=== PATIENT | male | born 1965 | race Two or more races ===

== ENCOUNTER 2024-11-06 08:48 | Inpatient (IN) | payer OTHER ==
[~2024-11-06] VITALS: Ht 180.3 cm; Wt 129.0 kg
[2024-11-06] MEDS: ONDANSETRON HCL 4 MG/2 ML VIAL IV ONE (09:00)
[2024-11-06] MEDS: ACTIVATED CHARCOAL 50 GM/240 ML SOL PO ONE (09:00)
--- NOTE | 2024-11-06 09:06 | ED.PDOC ---
Psychiatric HPI Comments This is a 59 year old male CHARLENE presenting to the ED with chief complaint of SI and drug overdose. Patient reports that he has been dealing with marital problems at home recently and today he had enough, taking 20-25 tablets of 25mg Methocarbamol at 0750 that had been previously prescribed for back spasms. Patient relays that he felt like committing suicide, but denies SI at this time. Patient states that he is currently sleepy at this time. Patient denies any HI, VH, AH, chest pain, SOB, abdominal pain, dizziness, or headache. Chief Complaint: Overdose Time Seen by MD: 09:02 Reviewed Notes: Nurses Notes, Medications, Allergies Information Source: Patient Mode of Arrival: Ambulatory Severity: Able to Care for Self, Able to Control Self Severity of Pain: None Severity of Mental Status: Moderate Severity of Symptoms: Moderate Timing: Hours Duration: Since onset Prehospital treatment: None Presents with: Depression, Suicidal Ideation Attempt: Ingestion Ingestion: Intentional, Multiple, Ingestion Observed, Drug(s) Ingested (Methocarbamol), Amount Ingested (20-25 tablets) Stressors: Family, Relationships History of: None Associated signs and symptoms: Depression Past Medical History PAST MEDICAL HISTORY: DM, HTN Surgical History: Denies all surgeries Family History Family History: Reviewed,noncontributory to illness Social History Smoker: Non-Smoker Alcohol: Denies ETOH Use Drugs: Denies Drug Use Lives In: Home Constitutional: reports: fatigue; denies: chills, diaphoresis, fever, malaise, sweats, weakness, others EENTM: denies: blurred vision, double vision, ear bleeding, ear discharge, ear drainage, ear pain, ear ringing, eye pain, eye redness, hearing loss, mouth pain, mouth swelling, nasal discharge, nose bleeding, nose congestion, nose pain, photophobia, tearing, throat pain, throat swelling, voice changes, others Respiratory: denies: cough, hemoptysis, orthopnea, SOB at rest, shortness of breath, SOB with excertion, stridor, wheezing, others Cardiovascular: denies: chest pain, dizzy spells, diaphoresis, Dyspnea on exertion, edema, irregular heart beat, left arm pain, lightheadedness, palpitations, PND, syncope, others Gastrointestinal: denies: abdomen distended, abdominal pain, blood streaked bowels, constipated, diarrhea, dysphagia, difficulty swallowing, hematemesis, melena, nausea, poor appetite, poor fluid intake, rectal bleeding, rectal pain, vomiting, others Genitourinary: denies: burning, dysuria, flank pain, frequency, hematuria, incontinence, penile discharge, penile sore, pain, testicle pain, testicle swelling, urgency, others Neurological: denies: dizziness, fainting, headache, left sided numbness, left sided weakness, numbness, paresthesia, pre-existing deficit, right sided numbness, right sided weakness, seizure, speech problems, tingling, tremors, weakness, others Musculoskeletal: denies: back pain, gout, joint pain, joint swelling, muscle pain, muscle stiffness, neck pain, others Integumetry: denies: bruises, change in color, change in hair/nails, dryness, laceration, lesions, lumps, rash, wounds, others Allergic/Immunocompromised: denies: Difficulty Healing, Frequent Infections, Hives, Itching, others Hematologic/Lymphatic: denies: anemia, blood clots, easy bleeding, easy bruising, swollen glands, others Endocrine: denies: excessive hunger, excessive sweating, excessive thirst, excessive urination, flushing, intolerance to cold, intolerance to heat, unexplained weight gain, unexplained weight loss, others Psychiatric: reports: suicidal; denies: anxiety, bipolar disorder, depression, hopeless, panic disorder, schizophrenia, sleepless, others All Other Systems: Reviewed and Negative Physical Exam General Appearance: Moderate Distress, Normal HEENT: Normal ENT Inspection, Pharynx Normal, TMs Normal Neck: Full Range of Motion, Non-Tender, Normal, Normal Inspection Respiratory: Chest Non-Tender, Lungs Clear, No Accessory Muscle Use, No Respiratory Distress, Normal Breath Sounds Cardiovascular: No Edema, No JVD, No Murmur, No Gallop, Normal Peripheral Pulses, Tachycardia Breast Exam: Deferred Gastrointestinal: No Organomegaly, Non Tender, No Pulsatile Mass, Normal Bowel Sounds, Soft Genitalia: Deferred Pelvic: Deferred Rectal: Deferred Extremities: No calf tenderness, Normal capillary refill, Normal inspection, Normal range of motion, Non-tender, No pedal edema Musculoskeletal : Apperance: Normal Neurologic: Alert, shrub planter II-XII nml as Tested, No Motor Deficits, Normal Affect, Normal Mood, No Sensory Deficits Cerebellar Function: NOT DONE Reflexes: NOT DONE Skin: Dry, Normal Color, Warm Peripheral Pulses: 3+ Radial (R), 3+ Radial (L) Lymphatic: No Adenopathy Was a procedure done? Was a procedure done?: No Psych Differential Dx Psych. Differential Dx: Depression, Suicidal OD Differential Dx: Drug Overdose X-Ray, Labs, Meds, VS Vital Signs Date Time Temp Pulse Resp B/P (MAP) Pulse Ox O2 Delivery O2 Flow Rate FiO2 11/06/24 12:00 111 11/06/24 12:00 115 19 134/80 (98) 96 11/06/24 11:30 108 19 130/80 (97) 96 11/06/24 11:00 101 19 125/74 (91) 96 11/06/24 10:45 100 19 130/75 (93) 96 11/06/24 10:30 100 19 121/77 (92) 96 11/06/24 10:15 101 19 121/73 (89) 96 11/06/24 10:13 95 Nasal Cannula* 2 28 11/06/24 10:03 107 19 97 Nasal Cannula* 2 28 11/06/24 10:00 101 19 130/68 (88) 96 11/06/24 09:48 97.1 106 19 124/73 (90) 96 97.1 11/06/24 09:05 114 11/06/24 09:00 98.4 118 16 146/93 98 98.4 Lab Test 11/06/24 09:15 Range/Units White Blood Count 12.7 H 4.4-10.8 10^3/uL Red Blood Count 5.44 4.5-5.90 10^6/uL Hemoglobin 15.9 13.5-17.5 g/dL Hematocrit 45.7 41.0-53.0 % Mean Corpuscular Volume 83.9 80.0-100.0 fL Mean Corpuscular Hemoglobin 29.2 28.0-32.0 pg Mean Corpuscular Hemoglobin Concent 34.8 32.0-36.0 g/dL Red Cell Distribution Width 13.6 11.8-14.3 % Platelet Count 306 140-450 10^3/uL Mean Platelet Volume 7.4 6.9-10.8 fL Neutrophils (%) (Auto) 69.7 37.0-80.0 % Lymphocytes (%) (Auto) 24.1 10.0-50.0 % Monocytes (%) (Auto) 5.6 0.0-12.0 % Eosinophils (%) (Auto) 0.4 0.0-7.0 % Basophils (%) (Auto) 0.2 0.0-2.0 % Neutrophils # (Auto) 8.8 H 1.6-8.6 10 ^3/uL Lymphocytes # (Auto) 3.1 0.4-5.4 10 ^3/uL Monocytes # (Auto) 0.7 0-1.3 10 ^3/uL Eosinophils # (Auto) 0 0-0.8 10 ^3/uL Basophils # (Auto) 0 0-0.2 10 ^3/uL Nucleated Red Blood Cells 0.0 % Urine Color Yellow Yellow Urine Clarity Clear Clear Urine pH 5.5 5.0-9.0 Urine Specific [place] 1.024 1.001-1.035 Urine Protein Negative Negative Urine Ketones 1+ H Negative Urine Blood Negative Negative /uL Urine Nitrite Negative Negative Urine Bilirubin Negative Negative Urine Urobilinogen Normal Negative mg/dL Urine Leukocyte Esterase Negative Negative /uL Urine RBC <1 0 - 3 /hpf Urine Microscopic WBC < 1 0-3 /HPF Urine Squamous Epithelial Cells Few <5 /hpf Urine Bacteria None seen None Seen /hpf Urine Mucus Few None Seen Urine Glucose Normal Normal mg/dL Sodium Level 133 L 136-145 mmol/L Potassium Level 3.9 3.5-5.1 mmol/L Chloride Level 97 L 98-107 mmol/L Carbon Dioxide Level 25 20-31 mmol/L Anion Gap 11 5-15 Blood Urea Nitrogen 13 9-23 mg/dL Creatinine 0.95 0.700-1.30 mg/dL Glomerular Filtration Rate Calc 92 >90 mL/min BUN/Creatinine Ratio 13.7 10.0-20.0 Serum Glucose 181 H 74-106 mg/dL Calcium Level 10.1 8.7-10.4 mg/dL Troponin I High Sensitivity < 3 L </=54 ng/L Current Medications Medications (Trade) Dose Ordered Sig/David Route Start Time Stop Time Status Last Admin Charcoal (Actidose-Aqua) 50 gm ONCE ONCE PO 11/06/24 09:00 11/06/24 09:01 DC 11/06/24 09:00 Ondansetron HCl (Zofran) 4 mg ONCE ONCE IV 11/06/24 09:00 11/06/24 09:01 DC 11/06/24 09:00 Sodium Chloride 1,000 ml @ 1,000 mls/hr Q1H ONCE IV 11/06/24 09:00 11/06/24 09:59 DC 11/06/24 10:24 Sodium Chloride 1,000 ml @ 150 mls/hr Q6H40M ONCE IV 11/06/24 09:00 11/06/24 15:39 11/06/24 10:24 Patient alert. Has taken medication in an attempt to harm himself. Vitals stable. Answering questions. Was given Zofran. Establish intravenous access. Was given fluids. Blood sugar slightly elevated. Cardiac marker within normal limits. Psychiatric evaluation. EKG reviewed does not show any acute changes. He will need to be admitted for monitoring. [place] approved inpatient admission [id number]. Time of 1ST Reevaluation: 10:01 Reevaluation 1ST: Unchanged Patient Education/Counseling: Diagnosis, Treatment Family Education/Counseling: No Family Present Departure 1 Departure Time of Disposition: 13:39 Impression: Primary Impression: Suicidal ideation Disposition: 30 STILL A PATIENT Condition: Good Critical Care Note Critical Care Time?: Yes (90 min-critical care time only) Critical care comment: Monitoring for mentation Stability Stability form required: No Heart Score Heart Score: Heart Score Response (Comments) Value History N/A 0 EKG N/A 0 Age N/A 0 Risk Factors N/A 0 Troponin N/A 0 Total 0 I personally scribed for TERRI ABRAHAM MD ([email or web address]) on 11/06/24 at 09:06. Electronically submitted by Samy Parnell ([email or web address]). TERRI ABRAHAM MD Nov 06, 2024 09:06
[2024-11-06 09:53] LABS: Hematocrit 45.7 % (41.0-53.0); Hemoglobin 15.9 g/dL (13.5-17.5); Mean Corpuscular Hemoglobin 29.2 pg (28.0-32.0); Mean Corpuscular Volume 83.9 fL (80.0-100.0); Nucleated Red Blood Cells % 0.0 %
[2024-11-06 10:01] LABS: Potassium 3.9 mmol/L (3.5-5.1)
[2024-11-06 10:03] VITALS: PULSE 107; RESP 19; O2SAT 97
[2024-11-06 10:03] LABS: Anion Gap 11 (5-15); Calcium 10.1 mg/dL (8.7-10.4); Carbon Dioxide 25 mmol/L (20-31)
[2024-11-06 10:04] LABS: Chloride 97 mmol/L (98-107); Sodium 133 mmol/L (136-145)
[2024-11-06 10:08] LABS: BUN/Creatinine Ratio 13.7 (10.0-20.0); Blood Urea Nitrogen 13 mg/dL (9-23)
[2024-11-06 10:09] LABS: Glucose 181 mg/dL (74-106)
[2024-11-06 10:15] LABS: Urine Protein, UAD Negative (Negative)
[2024-11-06] MEDS: SODIUM CHLORIDE 0.9% 1,000 ML IV ONE ×3 (10:24→14:12)
[2024-11-06 14:00] LABS: Acetaminophen < 2.0 UG/ML (10.0-20.0)
[2024-11-06] MEDS ORDERED: DEXTROSE (50%) 50ML SYRG IV PRN (14:00)
[2024-11-06] MEDS ORDERED: MORPHINE SULFATE INJ 2 MG/ml SYRG IV PRN (14:00)
[2024-11-06] MEDS ORDERED: ONDANSETRON HCL 4 MG/2 ML VIAL IV PRN (14:00)
[2024-11-06] MEDS ORDERED: NITROGLYCERIN 0.4 MG SL TAB SL PRN (14:00)
[2024-11-06 14:03] LABS: Salicylate < 3.0 mg/dL (-30)
[2024-11-06 14:19] LABS: Amphetamine Screen, Urine Neg (NEGATIVE); Barbiturate Scree,Urine Neg (NEGATIVE); Benzodiazephine Screen, Urine Neg (NEGATIVE); Cannabinoid Screen, Urine Neg (NEGATIVE); Cocaine Screen, Urine Neg (NEGATIVE); Opiate Scree,Urine Neg (NEGATIVE); Phencyclidine Screen, Urine Neg (NEGATIVE)
[2024-11-06 16:00] VITALS: BP 108/75; PULSE 88; RESP 19; TEMP 97.5; O2SAT 96
--- NOTE | 2024-11-06 16:39 | DVHHP2 ---
History of Present Illness Reason for Visit: Altered mental status. History of Present Illness 59-year-old male presents for evaluation of altered mental status. Patient presented for evaluation after he admitted to taking approximately 25 25 mg tablets of methadone carbamide in attempt to end his life. During my assessment he is denying suicidal ideation. Patient reports dizziness. No chest pain or palpitations. No other acute complaints reported. Past Medical History Hypertension diabetes mellitus Past Surgical History Denies Family History Noncontributory Smoke: No ALCOHOL: occassional Drugs: None Lives: with Family Review of Systems Review of Systems Review of systems are currently negative otherwise addressed in HPI. Allergies: Coded Allergies: NO KNOWN ALLERGIES (Unverified , 11/06/24) Medications Current Medications Medications Dose Ordered Sig/David Route Start Time Stop Time Status Last Admin Dose Admin Atenolol 25 mg DAILY PO 11/07/24 10:00 Atorvastatin Calcium 10 mg HS PO 11/06/24 22:00 Lisinopril 10 mg DAILY PO 11/07/24 10:00 Diagnostic Test (Pha) 1 strip ACHS 11/06/24 17:00 Insulin Human Regular ACHS SC 11/06/24 17:00 Dextrose 50 ml UD PRN IV 11/06/24 14:00 Ondansetron HCl 4 mg Q4HP PRN IV 11/06/24 14:00 Nitroglycerin 0.4 mg Q5MINP PRN SL 11/06/24 14:00 Morphine Sulfate 2 mg Q30M PRN IV 11/06/24 14:00 Exam Vital Signs Vital Signs Date Time Temp Pulse Resp B/P (MAP) Pulse Ox O2 Delivery O2 Flow Rate FiO2 11/06/24 16:00 97.5 88 19 108/75 (86) 96 97.5 11/06/24 10:13 Nasal Cannula* 2 28 Exam Gen: 59-year-old male in mild distress Skin: Warm, dry, normal color and texture, no rash. HEENT: Normocephalic atraumatic, mucous membranes moist and pink. Neck: Cervical and supraclavicular nodes normal without enlargement, trachea is midline, thyroid gland is normal without masses. Pulmonary: Clear to auscultation and percussion bilaterally. Cardiac: Regular rate and rhythm. No murmur Abdomen: Soft, nontender, nondistended, bowel sounds present all 4 quadrants, no guarding, no rigidity, no organomegaly. Extremities: No cyanosis, clubbing, no edema Neuro: Cranial nerves II through XII grossly intact, normal affect and speech, no focal motor deficits. Labs/Xrays Labs Test 11/06/24 13:53 11/06/24 09:15 Range/Units Plasma/Serum Blood Alcohol < 3.0 <10 mg/dL White Blood Count 12.7 H 4.4-10.8 10^3/uL Red Blood Count 5.44 4.5-5.90 10^6/uL Hemoglobin 15.9 13.5-17.5 g/dL Hematocrit 45.7 41.0-53.0 % Mean Corpuscular Volume 83.9 80.0-100.0 fL Mean Corpuscular Hemoglobin 29.2 28.0-32.0 pg Mean Corpuscular Hemoglobin Concent 34.8 32.0-36.0 g/dL Red Cell Distribution Width 13.6 11.8-14.3 % Platelet Count 306 140-450 10^3/uL Mean Platelet Volume 7.4 6.9-10.8 fL Neutrophils (%) (Auto) 69.7 37.0-80.0 % Lymphocytes (%) (Auto) 24.1 10.0-50.0 % Monocytes (%) (Auto) 5.6 0.0-12.0 % Eosinophils (%) (Auto) 0.4 0.0-7.0 % Basophils (%) (Auto) 0.2 0.0-2.0 % Neutrophils # (Auto) 8.8 H 1.6-8.6 10 ^3/uL Lymphocytes # (Auto) 3.1 0.4-5.4 10 ^3/uL Monocytes # (Auto) 0.7 0-1.3 10 ^3/uL Eosinophils # (Auto) 0 0-0.8 10 ^3/uL Basophils # (Auto) 0 0-0.2 10 ^3/uL Nucleated Red Blood Cells 0.0 % Urine Color Yellow Yellow Urine Clarity Clear Clear Urine pH 5.5 5.0-9.0 Urine Specific [place] 1.024 1.001-1.035 Urine Protein Negative Negative Urine Ketones 1+ H Negative Urine Blood Negative Negative /uL Urine Nitrite Negative Negative Urine Bilirubin Negative Negative Urine Urobilinogen Normal Negative mg/dL Urine Leukocyte Esterase Negative Negative /uL Urine RBC <1 0 - 3 /hpf Urine Microscopic WBC < 1 0-3 /HPF Urine Squamous Epithelial Cells Few <5 /hpf Urine Bacteria None seen None Seen /hpf Urine Mucus Few None Seen Urine Glucose Normal Normal mg/dL Sodium Level 133 L 136-145 mmol/L Potassium Level 3.9 3.5-5.1 mmol/L Chloride Level 97 L 98-107 mmol/L Carbon Dioxide Level 25 20-31 mmol/L Anion Gap 11 5-15 Blood Urea Nitrogen 13 9-23 mg/dL Creatinine 0.95 0.700-1.30 mg/dL Glomerular Filtration Rate Calc 92 >90 mL/min BUN/Creatinine Ratio 13.7 10.0-20.0 Serum Glucose 181 H 74-106 mg/dL Calcium Level 10.1 8.7-10.4 mg/dL Troponin I High Sensitivity < 3 L </=54 ng/L Salicylates Level < 3.0 -30 mg/dL Urine Opiates Screen Neg NEGATIVE Urine Fentanyl Screen Neg NEGATIVE Acetaminophen Level < 2.0 L 10.0-20.0 UG/ML Urine Barbiturates Screen Neg NEGATIVE Urine Phencyclidine Screen Neg NEGATIVE Urine Amphetamines Screen Neg NEGATIVE Urine Benzodiazepines Screen Neg NEGATIVE Urine Cocaine Screen Neg NEGATIVE Urine Cannabinoids Screen Neg NEGATIVE SEPSIS Sepsis Screen Date sepsis recognized/suspect: Nov 06, 2024 Time Sepsis recognized/suspect: 1011 Recent Procedure: No On Antibiotic Therapy: No Respiratory Rate >20: No Heart Rate >90: No Temp<36 C (96.8 F) or >38.3 C: No SBP <90 or MAP <65 mmHG: No New Acute Mental Status Change: No Is the patient on CPAP, BIPAP,: No Physician Orders Electrocardigram (11/06/24 09:13) *Tele Psych Consult (11/06/24 12:22) Sodium Chloride 0.9% (11/06/24 14:00) Atenolol Tablet (Tenormin Tablet) (11/07/24 10:00) Atorvastatin (Lipitor) (11/06/24 22:00) Lisinopril Tablet (Zestril Tablet) (11/07/24 10:00) Basic Metabolic Panel (11/07/24 04:00) Glucose Blood (Accu-Chek Comfort Curve T (11/06/24 17:00) Insulin R (Human) (Insulin R) (11/06/24 17:00) Dextrose 50% Syringe (11/06/24 14:00) Admit (11/06/24 13:56) Ondansetron Hcl (Zofran) (11/06/24 14:00) Cardiac Diet-2gna,Lofat,Lochol (11/06/24 Dinner) Condition: Fair (11/06/24 13:56) Bedrest With Bathroom Privileg (11/06/24 13:56) Nitroglycerin Sublingual (Ntrostat Subli (11/06/24 14:00) Morphine Sulfate Injection (11/06/24 14:00) Stat Ekg For Chest Pain (11/06/24 13:56) Notify Of Changes From Base (11/06/24 13:56) Living Coach For 24 Hours (11/06/24 13:56) Emergency Dysrhythmia Protocol (11/06/24 13:56) Rhythm Strips Once Every Shift (11/06/24 13:56) Oxygen By Nasal Cannula (11/06/24 13:56) Vital Signs Date Time Temp Pulse Resp B/P (MAP) Pulse Ox O2 Delivery O2 Flow Rate FiO2 11/06/24 16:00 97.5 88 19 108/75 (86) 96 97.5 11/06/24 15:00 104 19 115/65 (82) 96 11/06/24 14:30 108 19 130/85 (100) 96 11/06/24 14:00 97.7 109 19 144/86 (105) 96 97.7 11/06/24 12:00 111 11/06/24 12:00 115 19 134/80 (98) 96 11/06/24 11:30 108 19 130/80 (97) 96 11/06/24 11:00 101 19 125/74 (91) 96 11/06/24 10:45 100 19 130/75 (93) 96 11/06/24 10:30 100 19 121/77 (92) 96 11/06/24 10:15 101 19 121/73 (89) 96 11/06/24 10:13 95 Nasal Cannula* 2 28 11/06/24 10:03 107 19 97 Nasal Cannula* 2 28 11/06/24 10:00 101 19 130/68 (88) 96 11/06/24 09:48 97.1 106 19 124/73 (90) 96 97.1 11/06/24 09:05 114 11/06/24 09:00 98.4 118 16 146/93 98 98.4 Laboratory Tests Test 11/06/24 09:15 White Blood Count 12.7 10^3/uL (4.4-10.8) H Medications Medications Dose Ordered Sig/David Route Start Time Stop Time Status Last Admin Dose Admin Charcoal 50 gm ONCE ONCE PO 11/06/24 09:00 11/06/24 09:01 DC 11/06/24 09:00 50 GM Ondansetron HCl 4 mg ONCE ONCE IV 11/06/24 09:00 11/06/24 09:01 DC 11/06/24 09:00 4 MG Sodium Chloride 1,000 ml @ 100 mls/hr Q10H ONCE IV 11/06/24 14:00 11/06/24 23:59 11/06/24 14:12 100 MLS/HR Sodium Chloride 1,000 ml @ 150 mls/hr Q6H40M ONCE IV 11/06/24 09:00 11/06/24 15:39 DC 11/06/24 10:24 150 MLS/HR Sodium Chloride 1,000 ml @ 1,000 mls/hr Q1H ONCE IV 11/06/24 09:00 11/06/24 09:59 DC 11/06/24 10:24 1,000 MLS/HR Assessment/Plan Assessment/Plan Assessment Toxic encephalopathy Suicide attempt Diabetes mellitus Medication overdose Hypertension Plan Admit the patient to telemetry to the hospitalist Psychiatry consultation pending Maintenance IV fluids Suicide precautions Continue treatment per orders. Plan discussed with: Patient My Orders Orders - CLINTON FITZGERALD AGACNP Procedure Category Date Status Time Sodium Chloride 0.9% PHA 11/06/24 In Process 14:00 Atenolol Tablet PHA 11/07/24 In Process (Tenormin Tablet) 10:00 Atorvastatin (Lipitor) PHA 11/06/24 In Process 22:00 Lisinopril Tablet PHA 11/07/24 In Process (Zestril Tablet) 10:00 Basic Metabolic Panel LAB 11/07/24 Verified 04:00 Glucose Blood PHA 11/06/24 In Process (Accu-Chek Comfort 17:00 Insulin R (Human) PHA 11/06/24 In Process (Insulin R) 17:00 Dextrose 50% Syringe PHA 11/06/24 In Process 14:00 Admit ADMIT 11/06/24 Transmitted 13:56 Ondansetron Hcl [facility] 11/06/24 In Process (Zofran) 14:00 Cardiac DIET 11/06/24 Transmitted Diet-2gna,Lofat,Lochol Dinner Condition: Fair [facility] 11/06/24 In Process 13:56 Bedrest With Bathroom [facility] 11/06/24 In Process Privileg 13:56 Nitroglycerin [facility] 11/06/24 In Process Sublingual (Ntrostat 14:00 Morphine Sulfate [facility] 11/06/24 In Process Injection 14:00 Stat Ekg For Chest [facility] 11/06/24 In Process Pain 13:56 Notify Md Of Changes [facility] 11/06/24 In Process From Base 13:56 Living Coach For [facility] 11/06/24 In Process 24 Hours 13:56 Emergency Dysrhythmia [facility] 11/06/24 In Process Protocol 13:56 Rhythm Strips Once [facility] 11/06/24 In Process Every Shift 13:56 Oxygen By Nasal RT 11/06/24 Transmitted Cannula 13:56 Date of Service: Nov 06, 2024 Billing Provider: CLINTON FITZGERALD Common Visit Codes: [id number] INP/OBS CARE (HIGH) CLINTON FITZGERALD Nov 06, 2024 16:39
[2024-11-06] MEDS ORDERED: ACCU-CHEK COMFORT CURVE STRIP VI SCH (17:00)
[2024-11-06] MEDS ORDERED: InsuLIN REG 1unit/0.01ml Soln (100units/ml) SC SCH (17:00)
--- NOTE | 2024-11-06 18:59 | ECG ---
[facility] Test Date: 2024-11-06 Test Time: 09:03:51 Pat Name: GANESH SELLERS Department: ED Room: [address] [place] [address] A Gender: M [employer] Programmer: LESLIE : 1965 Requested By: TERRI ABRAHAM Order Number: [id number] Reading MD: Jovan Winslow Measurements Intervals [place] Rate: 114 P: 27 OK: 171 QRS: -27 QRSD: 93 T: 61 QT: 317 QTc: 437 Interpretive Statements Sinus tachycardia Inferior infarct, old Electronically Signed On 11-10-2024 21:56:28 PDT by Jovan Winslow Please click the below link to view image of tracing.
[2024-11-06] MEDS ORDERED: ATORVASTATIN 20 MG TAB PO SCH (22:00)
[2024-11-07] MEDS ORDERED: ATENOLOL 25 MG TAB PO SCH (10:00)
[2024-11-07] MEDS ORDERED: LISINOPRIL 5 MG TAB PO SCH (10:00)
== END 2024-11-06 16:28 | disposition left against medical advice (07) | DRG 917 ==
LOC: EDBD 08:48 → ER 08:48 → OVERFLOW 13:56
PROVIDERS: ADMIT Nurse Practitioner; ATTEND Nurse Practitioner
DX: T50.992A Poisoning by other drugs, medicaments and biological substances, intentional self-harm, initial encounter (principal); G92.8 Other toxic encephalopathy; E11.9 Type 2 diabetes mellitus without complications; I10 Essential (primary) hypertension; Z53.29 Procedure and treatment not carried out because of patient's decision for other reasons; Y92.89 Other specified places as the place of occurrence of the external cause
CPT/HCPCS: 36415; 80048; 80307; 80320; 80329; 81001; 84484; 85025; 93005; 96361; 96374; 99291; 99292; G0378